=== PATIENT | female | born 1950 | race Caucasian/White ===

== ENCOUNTER 2017-02-17 22:13 | Inpatient (IN) | payer MEDICARE ==
[~2017-02-17] VITALS: Ht 167.6 cm; Wt 111.6 kg
[~2017-02-17 22:13] MED LIST: ALPR1CON PO; ALPR1TAB3 PO; BACL10TA PO; COUM2.5T OR; COUM7.5T; DOFE250 PO; DULO1CAP3 PO; ESZO3 PO; HYDR10TA16 PO; LYRI150C PO; MAXA10TA2 PO; METH500T3 PO; METO100T9 PO; METO50; MULTIVITAMIN; PRIL20TA2 PO; RELP40TA PO; RIZA10TA2; TRAM50TA PO; XARE20TA PO; calcium PO; iron PO
[2017-02-17] MEDS ORDERED: SODIUM CHLORIDE 0.9% FLUSH 10 ML FLUSH IV FLUSH PRN (23:45)
[2017-02-17] MEDS ORDERED: NALOXONE HCL 0.4 MG/ML AMP IV PUSH PRN (23:45)
[2017-02-18] VITALS (8 sets, daily range): BP systolic 84–136; BP diastolic 51–90; PULSE 82–107; RESP 16–18; TEMP 97.4–99.5; O2SAT 95–99
[2017-02-18] MEDS ORDERED: LEVOFLOXACIN 750 MG PREMIX INJ 150 ML IV SCH
[2017-02-18] MEDS: MORPHINE SULFATE 2 MG/ML INJ IV PUSH PRN (00:14)
--- NOTE | 2017-02-18 01:33 | RADRPT ---
EXAM DATE/TIME: 02/18/2017 00:25 [facility] COMPARISON: No previous studies available for comparison. INDICATIONS : Bilateral leg pain. MEDICAL HISTORY : Hypothyroidism. Hypertension. Gastroesophageal reflux disease. A-fib. Arthritis. SURGICAL HISTORY : Hysterectomy.Total knee replacement, left. Gastric bypass. ENCOUNTER: Initial ACUITY: 2 day PAIN SCORE: 7/10 LOCATION: Bilateral legs. TECHNIQUE: Venous ultrasound of the left and right leg was performed from the inguinal ligament to the proximal calf. Real-time, color Doppler and spectral tracing, compression and augmentation techniques were us ed. FINDINGS: RIGHT LEG: There is normal compressibility of the deep venous system from the inguinal region to the proximal ca lf. No echogenic clot is seen in the lumen of the common femoral, femoral, popliteal, and posterior tibial veins. There is a normal response of the venous system to proximal and distal augmentation an d respiration. LEFT LEG: There is normal compressibility of the deep venous system from the inguinal region to the proximal ca lf. No echogenic clot is seen in the lumen of the common femoral, femoral, popliteal, and posterior tibial veins. There is a normal response of the venous system to proximal and distal augmentation an d respiration. CONCLUSION: No DVT in either leg. Robert Ham MD on February 18, 2017 at 1:32 Board Certified Radiologist. This report was verified electronically.
[2017-02-18] MEDS: DOFETILIDE 250 MCG CAP PO SCH ×2 (07:00→21:27)
[2017-02-18] MEDS: SODIUM CHLORIDE 0.9% FLUSH 10 ML FLUSH IV FLUSH SCH ×2 (08:01→21:28)
[2017-02-18] MEDS ORDERED: Vancomycin Consult Pharmacy 1 EA OTHER SCH (08:45)
[2017-02-18] MEDS ORDERED: VANCOMYCIN INJ 1,550 MG in SODIUM CHLORID 0.9% 500 ML INJ 500 ML IV ONE (08:45)
--- NOTE | 2017-02-18 09:10 | HHI.HP ---
HPI [facility] Primary Care Physician Non-Staff Admission Diagnosis Diagnoses: Chief Complaint: Knee pain Travel History International Travel<30 Days: No Contact w/Intl Traveler <30 Da: No Traveled to Known Affected Are: No History of Present Illness The patient is a 66-year-old female with past medical history of atrial fibrillation and osteoarthritis who is presenting to the hospital with left knee pain. The patient states that about 6 days ago she went to the bathroom and sat on the toilet. The next thing she knows that she woke up on the floor in the shower. She says she did not hit her head but she did injure her left knee, which she says she has had a left knee replacement on in the past. She says that the night before this occurred she took NyQuil and she believes that may have contributed to her passing out in the bathroom. The patient has had some pain in the left knee but it has gotten worse over the next few days. She noticed an area of pus around her left knee. She noticed redness around the left knee as well as on the underside of her left leg. The patient's family states that the patient has been acting strange over the past couple of weeks. They say she has been talking strangely and acting loopy. The patient says that has been occurring over the past couple weeks. She also mentions she has blacked out a couple of times. She does endorse palpitations from time to time. She says she has not hit her head. The patient says she has not been eating. She recently had an esophageal dilation done and she says her appetite has improved since then. She mentions her blood sugar has been found to be low in the other emergency department. Review of Systems Except as stated in HPI: all other systems reviewed are Neg Past Family Social History Past Medical History Osteoarthritis Atrial fibrillation Depression/anxiety Dysphagia Left wrist fracture Migraines Past Surgical History Left knee replacement Gastric bypass Allergies: Coded Allergies: acetaminophen (Unverified Allergy, Severe, 12/10/16) enoxaparin (Unverified Allergy, Severe, 12/10/16) oxycodone (Unverified Allergy, Severe, 12/10/16) Active Ordered Medications Current Medications Medications (Trade) Dose Ordered Sig/Cristian Route Start Time Stop Time Status Last Admin (NS Flush) 2 ml UNSCH PRN IV FLUSH 02/17/17 23:45 (NS Flush) 2 ml BID IV FLUSH 02/18/17 09:00 02/18/17 08:01 (Narcan Inj) 0.4 mg UNSCH PRN IV PUSH 02/17/17 23:45 (Morphine Inj) 2 mg Q3H PRN IV PUSH 02/18/17 00:00 02/18/17 00:14 (Tikosyn) 250 mcg BID PO 02/18/17 09:00 (Cymbalta Dr) 60 mg DAILY PO 02/18/17 09:00 (Xarelto) 20 mg DAILY PO 02/18/17 09:00 (Toprol Xl) 100 mg DAILY PO 02/18/17 09:00 Pharmacy Profile Note 0 ml @ 0 mls/hr UNSCH OTHER 02/18/17 08:45 UNV Vancomycin HCl 1550 mg/Sodium Chloride 515.5 ml @ 250 mls/hr Q12H IV 02/18/17 08:45 UNV Family History The patient denies pertinent family history Social History The patient does not smoke or drink Physical Exam Vital Signs Vital Signs Date Time Temp Pulse Resp B/P (MAP) Pulse Ox O2 Delivery O2 Flow Rate FiO2 02/18/17 08:00 97.4 101 16 111/64 (80) 95 02/18/17 04:00 98.4 106 18 119/69 (86) 95 02/18/17 01:10 95 02/18/17 00:00 99.5 88 18 136/90 (105) 99 Physical Exam GENERAL: Resting comfortably. SKIN: Focused skin assessment warm/dry. Erythema on the anterior left knee encompassing the entire left distal lower extremity. There is ecchymosis on the posterior left lower extremity. 3 cm right 2 cm dehiscence of the healed surgical site on the left anterior knee. There appears to be blackened scab versus necrosis in this area. HEAD: Atraumatic. Normocephalic. EYES: Pupils equal and round. No scleral icterus. No injection or drainage. ENT: No nasal bleeding or discharge. Mucous membranes pink and moist. NECK: Trachea midline. No JVD. CARDIOVASCULAR: Irregularly irregular. No murmur appreciated. RESPIRATORY: No accessory muscle use. Clear to auscultation. Breath sounds equal bilaterally. GASTROINTESTINAL: Abdomen soft, non-tender, nondistended. Hepatic and splenic margins not palpable. MUSCULOSKELETAL: No obvious deformities. No clubbing. No cyanosis. 2+ left lower extremity edema. Distal pulses are palpable. Tenderness also to palpation of the left anterior knee. NEUROLOGICAL: Awake and alert. No obvious cranial nerve deficits. Motor grossly within normal limits. Normal speech. PSYCH: Mood and affect appropriate. Imaging Last Impressions Lower Extremity Ultrasound 02/17/17 0000 Signed Impressions: Service Date/Time: Saturday, February 18, 2017 00:25 - CONCLUSION: No DVT in either leg. MD Haley Woods VTE Risk Assessment Haley VTE Risk Assessment: Mod/High Risk (score >= 2) Caprini Risk Assessment Model Point Value = 1 Point Value = 2 Point Value = 3 Point Value = 5 Age 41-60 Minor surgery BMI > 25 kg/m2 Swollen legs Varicose veins or History of unexplained or recurrent spontaneous Oral contraceptives or hormone replacement Sepsis (< 1 month) Serious lung disease, including pneumonia (< 1 month) Abnormal pulmonary function Acute myocardial infarction Congestive heart failure (< 1 month) History of inflammatory bowel disease Medical patient at bed rest Age 61-74 Arthroscopic surgery Major open surgery (> 45 min) Laparoscopic surgery (> 45 min) Malignancy Confined to bed (> 72 hours) Immobilizing plaster cast Central venous access Age >= 75 History of VTE Family history of VTE Factor V Leiden Prothrombin [id number] Lupus anticoagulant Anticardiolipin antibodies Elevated serum homocysteine Heparin-induced thrombocytopenia Other congenital or acquired thrombophilia Stroke (< 1 month) Elective arthroplasty Hip, pelvis, or leg fracture Acute spinal cord injury (< 1 month) Prophylaxis Regimen Total Risk Factor Score Risk Level Prophylaxis Regimen 0-1 Low Early ambulation 2 Moderate Order ONE of the following: *Sequential Compression Device (SCD) *Heparin 5000 units SQ BID 3-4 Higher Order ONE of the following medications: *Heparin 5000 units SQ TID *Enoxaparin/Lovenox 40 mg SQ daily (WT < 150 kg, CrCl > 30 mL/min) *Enoxaparin/Lovenox 30 mg SQ daily (WT < 150 kg, CrCl > 10-29 mL/min) *Enoxaparin/Lovenox 30 mg SQ BID (WT < 150 kg, CrCl > 30 mL/min) AND/OR *Sequential Compression Device (SCD) 5 or more Highest Order ONE of the following medications: *Heparin 5000 units SQ TID (Preferred with Epidurals) *Enoxaparin/Lovenox 40 mg SQ daily (WT < 150 kg, CrCl > 30 mL/min) *Enoxaparin/Lovenox 30 mg SQ daily (WT < 150 kg, CrCl > 10-29 mL/min) *Enoxaparin/Lovenox 30 mg SQ BID (WT < 150 kg, CrCl > 30 mL/min) AND *Sequential Compression Device (SCD) Assessment and Plan Assessment and Plan Cellulitis Started following a fall involving her left knee, which has a total knee replacement in place. The pt endorses pus coming out from the old surgical scar. Knee x ray without deformity. US negative for DVT. - change antibiotics to IV vancomycin. - obtain wound and blood cultures. - consult infectious disease. - pain control as needed. - IVFs. Syncope Etiology may be s/t polypharmacy, a fib or hypoglycemia. Blood sugar noted to be in the 40s in the ED. The pt is not diabetic. She says she has not been eating well. Has been experiencing palpitations at times. - check CT of the head, carotid Duplex and orthostatics. - follow blood sugar level. - obtain an echocardiogram. - holding sedating meds at this time. A fib On Tikosyn, metoprolol and Xarelto. - resume home regimen. - telemetry. PPx: Xarelto Code Status Full Discussed Condition With Pt, pt's family, Bri Soliman Physician Certification 2 Midnight Certification Type: Admission for Inpatient Services Order for Inpatient Services The services are ordered in accordance with Medicare regulations or non- Medicare payer requirements, as applicable. In the case of services not specified as inpatient-only, they are appropriately provided as inpatient services in accordance with the 2-midnight benchmark. Estimated LOS (days): 2 days is the estimated time the patient will need to remain in the hospital, assuming treatment plan goals are met and no additional complications. Post-Hospital Plan: Not yet determined Werner Moody DO Feb 18, 2017 09:10
[2017-02-18] MEDS: DOCUSATE SODIUM 100 MG CAP PO SCH ×2 (09:30→21:26)
[2017-02-18] MEDS: METOPROLOL SUCCINATE 50 MG EXTENDED RELEASE TAB PO SCH (09:33)
[2017-02-18] MEDS: RIVAROXABAN 20 MG TAB PO SCH (09:33)
[2017-02-18] MEDS: DULoxetine HCl DR 60 MG CAP PO SCH (09:33)
[2017-02-18] MEDS: PANTOPRAZOLE SOD 20 MG DELAYED RELEASE TAB PO SCH ×2 (09:41→21:27)
[2017-02-18] MEDS: traMADol HCL 50 MG TAB PO PRN ×3 (09:52→18:08)
--- NOTE | 2017-02-18 10:33 | RADRPT ---
EXAM DATE/TIME: 02/18/2017 09:59 [facility] COMPARISON: No previous studies available for comparison. INDICATIONS : Syncope. MEDICAL HISTORY : Hypertension. Gastroesophageal reflux disease. Vertigo. Migraine. Atrial fibrillation. Dyspnea. Cer vical cancer. SURGICAL HISTORY : Tonsillectomy. Hysterectomy. Gastric bypass and revision. Esophageal dilation. Left knee replacemen t. Left wrist surgery. ENCOUNTER: Initial ACUITY: 1 day PAIN SCORE: 0/10 LOCATION: Bilateral neck PEAK SYSTOLIC VELOCITIES (cm/sec): ICA/CCA RATIO: Right: 1.4 Left: 1.1 ICA: Right: 114 Left: 122 CCA: Right: 80 Left: 108 ECA: Right: 96 Left: 88 VERTEBRAL: Right: 53 antegrade Left: 48 antegrade Elevated flow velocities and ICA/CCA ratios have been found to correlate with increased degrees of vessel stenosis, calculated as percentage of diameter relative to a normal segment of distal ICA/CCA FINDINGS: RIGHT CAROTID: Minimal noncalcified plaque in the right carotid bulb. The waveforms are within normal limits. LEFT CAROTID: No significant stenosis is visualized. The waveforms are within normal limits. VERTEBRAL ARTERIES: Antegrade flow is seen in both vertebral arteries. MISCELLANEOUS: None. CONCLUSION: 1. Minimal noncalcified plaque in right carotid bulb. 2. Otherwise negative. No sonographic or Doppler findings of a hemodynamically significant stenosis. Antegrade flow in both vertebral arteries. Rosas Whittington MD on February 18, 2017 at 10:30 Board Certified Radiologist. This report was verified electronically.
[2017-02-18 10:37] LABS: AUTOMATED NEUTROPHIL # 3.5 TH/MM3 (1.8-7.7); BASOPHIL # 0.1 TH/MM3 (0-0.2); EOSINOPHIL # 0.2 TH/MM3 (0-0.4); HEMO FLAGS DIFF FINAL; LYMPH % 21.2 % (9.0-44.0); LYMPHOCYTE # 1.1 TH/MM3 (1.0-4.8); MEAN CELL VOLUME 89.7 FL (80.0-100.0); MEAN CORPUSCULAR HGB CONC 31.2 % (32.0-36.0); MONO % 7.9 % (0.0-8.0); NEUT % 65.9 % (16.0-70.0); PLATELET COUNT 244 TH/MM3 (150-450); RED BLOOD COUNT 3.69 MIL/MM3 (4.00-5.30); RED CELL DISTRIBUTION WIDTH 14.3 % (11.6-17.2); WHITE BLOOD COUNT 5.3 TH/MM3 (4.0-11.0)
[2017-02-18 10:45] LABS: POTASSIUM 3.5 MEQ/L (3.5-5.1)
[2017-02-18 10:48] LABS: BICARBONATE 31.8 MEQ/L (21.0-32.0)
--- NOTE | 2017-02-18 16:03 | RADRPT ---
EXAM DATE/TIME: 02/18/2017 15:42 [facility] COMPARISON: No previous studies available for comparison. INDICATIONS : Syncopal episode. RADIATION DOSE: 59.46 CTDIvol (mGy) MEDICAL HISTORY : Cardiovascular disease. Cervical cancer. SURGICAL HISTORY : Gastric bypass. Cholecystectomy.Hysterectomy. ENCOUNTER: Initial ACUITY: 4 - 6 days PAIN SCALE: 0/10 LOCATION: cranial TECHNIQUE: Multiple contiguous axial images were obtained of the head. Using automated exposure control and adj ustment of the mA and/or kV according to patient size, radiation dose was kept as low as reasonably a chievable to obtain optimal diagnostic quality images. DICOM format image data is available electro nically for review and comparison. FINDINGS: CEREBRUM: The ventricles are normal for age. No evidence of midline shift, mass lesion, hemorrhage or acute in farction. No extra-axial fluid collections are seen. POSTERIOR FOSSA: The cerebellum and brainstem are intact. The 4th ventricle is midline. The cerebellopontine angle i s unremarkable. EXTRACRANIAL: There is complete opacification of the maxillary sinuses, multiple anterior and mid ethmoid air cells , the right frontal sinus, and the sphenoid sinus. Mucosal thickening The visualized portion of the orbits is intact. SKULL: The calvaria is intact. No evidence of skull fracture. CONCLUSION: 1. No acute findings in the brain. 2. Pansinus disease. Dean Kwok MD on February 18, 2017 at 16:01 Board Certified Radiologist. This report was verified electronically.
[2017-02-18] MEDS: CEFEPIME INJ 1,000 MG in SODIUM CHLORIDE 0.9% INJ 100 ML IV SCH (18:08)
--- NOTE | 2017-02-18 21:36 | MB ---
cc: MAE ROY MD DATE OF CONSULTATION 02/18/[address] Moody REASON FOR CONSULTATION Cellulitis overlying left knee replacement. HISTORY OF PRESENT ILLNESS This is a 66-year-old white female who has a history of total left knee replacement in 2008. The patient fell from the commode at home and reportedly she struck her knee against the floor of her bathroom. This happened about a week ago. She states that she had a tiny bruise at the anterior aspect of her left knee where she had the total right knee replacement. She used Neosporin and put a Band-Aid over it. The patient also had pain at the left tibia. She reports that her family was mentioning that her communication was off and that she at times was not making sense. The patient states that she was wearing long clothing to hide the injury of her leg from her family. She gets around with a cane at home. However, the son saw her leg and immediately wanted her evaluated in the emergency department and she was taken to [place] emergency department and subsequently transferred here to [facility]. She underwent ultrasound of the lower extremity which showed no evidence of deep venous thrombosis. She was felt to likely have syncope and workup is in progress. She has no fever and white blood cell count is normal. She has been on blood thinners for atrial fibrillation. She denies chills, sweats, fever, nausea or vomiting. The patient underwent esophageal dilatation recently and has been having trouble with swallowing. PAST MEDICAL HISTORY Atrial fibrillation, depression, anxiety, dysphagia, migraines, osteoarthritis, total left knee replacement in 2008, gastric bypass. ALLERGIES ACETAMINOPHEN, ENOXAPARIN, OXYCODONE. MEDICATIONS 1. Vancomycin. 2. Ultram. 3. Colace. 4. Protonix. 5. Tikosyn. 6. Cymbalta. 7. Xarelto. 8. Toprol XL. SOCIAL HISTORY No tobacco or alcohol or illicit drugs. The patient lives in [place] and she has a daughter and son who lives with her. FAMILY HISTORY Noncontributory. REVIEW OF SYSTEMS GENERAL: Denies fever or chills. HEAD, EARS, NOSE AND THROAT: Significant for migraine headaches. Denies visual blurring or diplopia. Denies nasal bleeding. Denies soreness of the throat. Positive for dysphasia. NECK: Denies neck pain or swelling. CARDIOVASCULAR: Denies palpitation or chest pain. RESPIRATORY: Denies cough or shortness of breath. GASTROINTESTINAL: Denies nausea or vomiting, abdominal pain or diarrhea. GENITOURINARY: Denies urgency, frequency or dysuria. HEMATOPOIETIC: Denies easy bruising or bleeding. INTEGUMENTARY: Denies skin rash or itching. ENDOCRINE: Denies polyuria, polydipsia. NEUROLOGIC: Denies problems with coordination. Denies depression. PHYSICAL EXAMINATION GENERAL: This is a slender female who is in no acute distress. She is awake and alert and oriented. VITAL SIGNS: Include temperature 97.9, blood pressure 104/64, respirations 18, heart rate 84. HEENT: Head is atraumatic. Extraocular movements grossly intact, pupils reactive to light. No icterus. Oropharynx moist mucosa. NECK: Supple. No adenopathy. LUNGS: Clear breath sounds. HEART: Irregular rate and rhythm. No murmurs, rubs or gallops. ABDOMEN: Bowel sounds present, soft, nontender. RECTAL: Not performed. EXTREMITIES: The left knee has an incision from prior left knee replacement surgery. Directly over the kneecap there is erythema and also there is a black necrotic scab at the central aspect over the mid area of the kneecap. There is no visible drainage. The posterior/lateral aspect of the left thigh and knee has ecchymosis. The left tibia, approximately mid tibia down to the ankle has confluent erythema with areas of purplish discoloration and the area is extremely warm. This is circumferential. No visible blisters. The remaining extremities have no clubbing, cyanosis or edema. SKIN: No diffuse rash. NEURO: Nonfocal. LABORATORY DATA WBC 5.3, platelets 244, 65% neutrophils, hemoglobin 10.3, creatinine 0.58, BUN 8, sodium 139. IMPRESSION Erythema involving the left knee at prior left knee replacement surgery and also at the left leg. The patient reportedly mentioned that she has some pus coming from the knee area where she had an ulcer. It is unclear to me whether the ulcer began after she fell or whether it was present before. The patient, in the presence of her daughter, mentions before her fall the skin was normal with the incision after surgery visible and the skin over it the same throughout with a well-healed incision. It is difficult to decide whether this is an actual cellulitis or whether it is ecchymoses or superficial bruising as a result of the patient being on blood thinners. The area below the knee, however, where the tibia has confluent erythema suggest that it may be cellulitis which may have followed the trauma to her leg. The area is extremely warm and erythematous. The patient has had prior surgery at the knee and therefore it may be difficult to determine whether there is infection in that area. I am concerned because of the knee instrumentation that she could have underlying infection involving the knee hardware. She easily could have an infected knee with infected hardware as well. RECOMMENDATIONS 1. Continue vancomycin. 2. Add cefepime for gram-negative coverage. 3. Obtain C-reactive protein. 4. Obtain sedimentation rate. 5. Consult orthopedic surgery for evaluation of the knee. 6. Monitor response to the antibiotic treatment. Thank you for this consultation. I will monitor the patient's progress along with you and make further recommendations on followup if necessary. The patient does not want to be in the hospital. However, I informed her that it is necessary to have adequate evaluation and treatment and that she needs to remain in the hospital for that to occur. Mae Roy MD FD/OWEN /5:25 PM /9:09 PM [email or web address]
--- NOTE | 2017-02-18 22:17 | RADRPT ---
EXAM DATE/TIME: 02/18/2017 19:26 [facility] COMPARISON: No previous studies available for comparison. INDICATIONS : Left knee pain post fall. MEDICAL HISTORY : None. SURGICAL HISTORY : Total knee replacement, left. ENCOUNTER: Subsequent ACUITY: 2 days PAIN SCORE: 9/10 LOCATION: Left knee. FINDINGS: There is soft tissue swelling which is mainly anterior. No evidence of underlying fracture. Total kne e arthroplasty is intact. CONCLUSION: Soft tissue swelling. No acute bony injury Mando Bedolla MD on February 18, 2017 at 22:15 Board Certified Radiologist. This report was verified electronically.
[2017-02-19] VITALS (7 sets, daily range): BP systolic 102–142; BP diastolic 58–96; PULSE 84–96; RESP 14–20; TEMP 97.1–98.1; O2SAT 97–100
[2017-02-19] MEDS: VANCOMYCIN INJ 2,400 MG in SODIUM CHLORID 0.9% 500 ML INJ 500 ML IV SCH ×2 (00:48→18:08)
[2017-02-19] MEDS: CEFEPIME INJ 1,000 MG in SODIUM CHLORIDE 0.9% INJ 100 ML IV SCH ×3 (04:08→17:22)
[2017-02-19] MEDS: MORPHINE SULFATE 2 MG/ML INJ IV PUSH PRN (04:23)
[2017-02-19 08:08] LABS: HEMATOCRIT 32.9 % (35.0-46.0); MEAN CELL VOLUME 87.5 FL (80.0-100.0); MEAN CORPUSCULAR HEMOGLOBIN 29.3 PG (27.0-34.0); MEAN CORPUSCULAR HGB CONC 33.5 % (32.0-36.0); PLATELET COUNT 238 TH/MM3 (150-450); RED BLOOD COUNT 3.76 MIL/MM3 (4.00-5.30); RED CELL DISTRIBUTION WIDTH 13.5 % (11.6-17.2); REVIEW FLAG FINAL; WHITE BLOOD COUNT 5.5 TH/MM3 (4.0-11.0)
[2017-02-19 08:19] LABS: POTASSIUM 3.7 MEQ/L (3.5-5.1)
[2017-02-19 08:23] LABS: BICARBONATE 29.7 MEQ/L (21.0-32.0); MAGNESIUM 1.8 MG/DL (1.5-2.5)
[2017-02-19] MEDS: DULoxetine HCl DR 60 MG CAP PO SCH (08:49)
[2017-02-19] MEDS: DOFETILIDE 250 MCG CAP PO SCH ×2 (08:49→21:23)
[2017-02-19] MEDS: DOCUSATE SODIUM 100 MG CAP PO SCH ×2 (08:50→21:23)
[2017-02-19] MEDS: SODIUM CHLORIDE 0.9% FLUSH 10 ML FLUSH IV FLUSH SCH ×2 (08:50→21:22)
[2017-02-19] MEDS: METOPROLOL SUCCINATE 50 MG EXTENDED RELEASE TAB PO SCH (08:50)
[2017-02-19] MEDS: RIVAROXABAN 20 MG TAB PO SCH (08:50)
[2017-02-19] MEDS: PANTOPRAZOLE SOD 20 MG DELAYED RELEASE TAB PO SCH ×2 (08:55→21:23)
--- NOTE | 2017-02-19 11:29 | HHI.PR ---
Subjective Remarks The patient has been ambulating the hallways without difficulty. She really wants to go home. Family was at the bedside. Their questions were answered. The patient says her pain level is good. She has not had a bowel movement in a few days. Discussed with nursing. Objective Vitals Vital Signs Date Time Temp Pulse Resp B/P (MAP) Pulse Ox O2 Delivery O2 Flow Rate FiO2 02/19/17 08:09 88 02/19/17 08:00 97.8 90 14 125/69 (87) 97 102/79 (87) 118/92 (101) 02/19/17 04:00 98.0 85 20 110/58 (75) 98 02/19/17 00:00 98.1 85 20 106/61 (76) 98 02/18/17 20:00 82 02/18/17 20:00 97.5 82 18 109/56 (73) 98 94/52 (66) 118/69 (85) 02/18/17 16:00 97.9 84 18 104/64 (77) 96 02/18/17 12:00 98.1 99 16 106/59 (75) 96 104/55 (71) 84/51 (62) I/O 02/18/17 02/18/17 02/18/17 02/19/17 02/19/17 02/19/17 07:00 15:00 23:00 07:00 15:00 23:00 Intake Total 315 ml 1350 ml 855 ml Balance 315 ml 1350 ml 855 ml Intake Oral 180 ml 840 ml 240 ml IV Total 135 ml 510 ml 615 ml # Voids 1 3 6 # Bowel Movements 1 Result Diagram: 02/19/17 0755 02/19/17 0755 Imaging Last Impressions Knee X-Ray 02/18/17 0000 Signed Impressions: Service Date/Time: Saturday, February 18, 2017 19:26 - CONCLUSION: Soft tissue swelling. No acute bony injury Mando Bedolla MD Head CT 02/18/17 0000 Signed Impressions: Service Date/Time: Saturday, February 18, 2017 15:42 - CONCLUSION: 1. No acute findings in the brain. 2. Pansinus disease. Dean Kwok MD Carotid Artery Ultrasound 02/18/17 0000 Signed Impressions: Service Date/Time: Saturday, February 18, 2017 09:59 - CONCLUSION: 1. Minimal noncalcified plaque in right carotid bulb. 2. Otherwise negative. No sonographic or Doppler findings of a hemodynamically significant stenosis. Antegrade flow in both vertebral arteries. Rosas Whittington MD Lower Extremity Ultrasound 02/17/17 0000 Signed Impressions: Service Date/Time: Saturday, February 18, 2017 00:25 - CONCLUSION: No DVT in either leg. Robert Ham MD Objective Remarks GENERAL: Resting comfortably. SKIN: Focused skin assessment warm/dry. Erythema and warmth on the anterior left knee encompassing the entire left distal lower extremity. There is ecchymosis on the posterior left lower extremity. 3 cm right 2 cm dehiscence of the healed surgical site on the left anterior knee. There appears to be blackened scab versus necrosis in this area. HEAD: Atraumatic. Normocephalic. EYES: Pupils equal and round. No scleral icterus. No injection or drainage. ENT: No nasal bleeding or discharge. Mucous membranes pink and moist. NECK: Trachea midline. No JVD. CARDIOVASCULAR: Irregularly irregular. No murmur appreciated. RESPIRATORY: No accessory muscle use. Clear to auscultation. Breath sounds equal bilaterally. GASTROINTESTINAL: Abdomen soft, non-tender, nondistended. Hepatic and splenic margins not palpable. MUSCULOSKELETAL: No obvious deformities. No clubbing. No cyanosis. 2+ left lower extremity edema. Distal pulses are palpable. Tenderness also to palpation of the left anterior knee. NEUROLOGICAL: Awake and alert. No obvious cranial nerve deficits. Motor grossly within normal limits. Normal speech. PSYCH: Mood and affect appropriate. Medications and IVs Current Medications Medications (Trade) Dose Ordered Sig/Cristian Route Start Time Stop Time Status Last Admin (NS Flush) 2 ml UNSCH PRN IV FLUSH 02/17/17 23:45 (NS Flush) 2 ml BID IV FLUSH 02/18/17 09:00 02/19/17 08:50 (Narcan Inj) 0.4 mg UNSCH PRN IV PUSH 02/17/17 23:45 (Morphine Inj) 2 mg Q3H PRN IV PUSH 02/18/17 00:00 02/19/17 04:23 (Tikosyn) 250 mcg BID PO 02/18/17 09:00 02/19/17 08:49 (Cymbalta Dr) 60 mg DAILY PO 02/18/17 09:00 02/19/17 08:49 (Xarelto) 20 mg DAILY PO 02/18/17 09:00 02/19/17 08:50 (Toprol Xl) 100 mg DAILY PO 02/18/17 09:00 02/19/17 08:50 Pharmacy Profile Note 0 ml @ 0 mls/hr UNSCH OTHER 02/18/17 08:45 (Protonix) 20 mg BID PO 02/18/17 09:15 02/19/17 08:55 (Ultram) 50 mg Q4H PRN PO 02/18/17 09:30 02/18/17 18:08 (Colace) 100 mg BID PO 02/18/17 09:30 02/19/17 08:50 Vancomycin HCl 2400 mg/Sodium Chloride 524 ml @ 250 mls/hr Q18H IV 02/19/17 00:00 02/19/17 00:48 Miscellaneous Information SPECIFIC LAB TO BE DRAWN:VANCO TROUGH DATE TO... ONCE ONCE .XX 02/21/17 05:45 02/21/17 05:46 Cefepime HCl 1000 mg/Sodium Chloride 100 ml @ 200 mls/hr Q8H IV 02/18/17 18:00 02/19/17 08:55 A/P Assessment and Plan Cellulitis Started after a fall involving her left knee, which has a total knee replacement in place. The pt endorses pus coming out from the old surgical scar. Knee x ray without deformity. US negative for DVT. ID consult appreciated. - continue IV vancomycin and cefepime per ID. - obtain wound and blood cultures. - consult orthopedic surgery. - pain control as needed. - IVFs. Syncope Etiology may be s/t polypharmacy, a fib or hypoglycemia. Blood sugar noted to be in the 40s in the ED. The pt is not diabetic. She says she has not been eating well. Has been experiencing palpitations at times. CT of the head unremarkable. Carotid US without significant stenosis. Not orthostatic. Glucose levels have been normal. Improved. - follow daily blood sugars. - obtain an echocardiogram. - holding sedating meds at this time. A fib On Tikosyn, metoprolol and Xarelto. Rate is controlled. - resume home regimen. - telemetry. PPx: Xarelto Discharge Planning Awaiting ortho Werner Cho DO Feb 19, 2017 11:29
--- NOTE | 2017-02-19 11:58 | PD.WCN.NOT ---
Wound Consult Description: Received consult for wound management of L lower extremity from Doctor Minerva Communicated with: EVENS Duran [facility] COORDINATOR and Doctor Heidy Recommendation: Please paint wound to L knee with povidone-iodine and cover with bordered gauze until seen by Orthopedic Doctor Additional Information: Patient seen on 3rd floor [facility] for evaluation of L lower extremity wound management. Patient is laying in bed with HOD elevated. Removed bordered gauze dressing in place to L knee to reveal. old incision scar with open wound measuring ~3cm x 1cm x eschar. Wound is 100% covered with black eschar. Periwound presents with two small areas of partial thickness skin loss. Also noted edema that is fluctuant, heat and erythema that is circumferential.Wound has minimal sero-sanguinous drainage that is without odor. Wound culture is negative. Pedal pulse in L foot is weak. Painted wound with povidone iodine and covered wound with bordered gauze dressing. Orthopedic Doctor Consulted.Patient wants to leave, states," I think the wound is doing better." Spoke with patient at length regarding the importance of orthopedic Doctor evaluation of wound and L knee.Patient still wants to leave, states," I can see the Orthopedic Doctor when I leave."Spoke with Doctor Heidy regarding wound status , and patient's wishes and expectations. Belkys Cuello [facility] Feb 19, 2017 11:58
[2017-02-19] MEDS: traMADol HCL 50 MG TAB PO PRN (14:55)
--- NOTE | 2017-02-19 16:13 | HHI.IDPN ---
Note Infectious Disease Note Patient notes that she has little pain in the left knee. afebrile. Knee appears swollen. Denies chill but says she always get's hot/cold flushes. PAST MEDICAL HISTORY Atrial fibrillation. Depression. Anxiety. Dysphagia. Migraines. Osteoarthritis. total left knee replacement in 2008. Gastric bypass. ALLERGIES ACETAMINOPHEN, ENOXAPARIN, OXYCODONE. MEDICATIONS 1. Vancomycin. 2. Cefepime. OBJECTIVE: Vital Signs Date Time Temp Pulse Resp B/P (MAP) Pulse Ox O2 Delivery O2 Flow Rate FiO2 02/19/17 12:00 97.8 96 16 142/96 (111) 97 02/19/17 08:09 88 02/19/17 08:00 97.8 90 14 125/69 (87) 97 102/79 (87) 118/92 (101) 02/19/17 04:00 98.0 85 20 110/58 (75) 98 02/19/17 00:00 98.1 85 20 106/61 (76) 98 02/18/17 20:00 82 02/18/17 20:00 97.5 82 18 109/56 (73) 98 94/52 (66) 118/69 (85) 02/18/17 16:00 97.9 84 18 104/64 (77) 96 Laboratory Tests Test 02/18/17 18:50 02/19/17 07:55 Erythrocyte Sedimentation Rate 54 mm/hr 49 mm/hr C-Reactive Protein 3.40 MG/DL 2.58 MG/DL White Blood Count 5.5 TH/MM3 Red Blood Count 3.76 MIL/MM3 Hemoglobin 11.0 GM/DL Hematocrit 32.9 % Mean Corpuscular Volume 87.5 FL Mean Corpuscular Hemoglobin 29.3 PG Mean Corpuscular Hemoglobin Concent 33.5 % Red Cell Distribution Width 13.5 % Platelet Count 238 TH/MM3 Mean Platelet Volume 8.2 FL Blood Urea Nitrogen 8 MG/DL Creatinine 0.61 MG/DL Random Glucose 105 MG/DL Calcium Level 8.4 MG/DL Magnesium Level 1.8 MG/DL Sodium Level 138 MEQ/L Potassium Level 3.7 MEQ/L Chloride Level 104 MEQ/L Carbon Dioxide Level 29.7 MEQ/L Anion Gap 4 MEQ/L Estimat Glomerular Filtration Rate 98 ML/MIN PHYSICAL EXAMINATION GENERAL: No acute distress. Awake and alert and oriented. HEENT: Head is atraumatic. Extraocular movements grossly intact, pupils reactive to light. No icterus. Oropharynx moist mucosa. NECK: Supple. No adenopathy. LUNGS: Clear breath sounds. HEART: Irregular rate and rhythm. No murmurs, rubs or gallops. ABDOMEN: Bowel sounds present, soft, nontender. EXTREMITIES: The left knee has an incision from prior left knee replacement surgery. Directly over the kneecap there is erythema and also there is a black necrotic scab at the central aspect over the mid area of the kneecap. No drainage. The posterior/lateral aspect of the thigh and knee has ecchymosis. The left tibia, approximately mid tibia down to the ankle has confluent erythema with areas of purplish discoloration and the area is extremely warm. Minimal tenderness. This is circumferential. No visible blisters. The left foot has ecchymoses. The remaining extremities have no clubbing, cyanosis or edema. SKIN: No diffuse rash. NEURO: Nonfocal. IMPRESSION Erythema involving the left knee at prior left knee replacement surgery and also at the left leg. The patient reportedly mentioned that she has some pus coming from the knee area where she had an ulcer. It is unclear to me whether the ulcer began after she fell or whether it was present before. The patient, in the presence of her daughter, mentions before her fall the skin was normal with the incision after surgery visible and the skin over it the same throughout with a well-healed incision. It is difficult to decide whether this is an actual cellulitis or whether it is ecchymoses or superficial bruising as a result of the patient being on blood thinners. The area below the knee, however, where the tibia has confluent erythema suggest that it may be cellulitis which may have followed the trauma to her leg. The area is extremely warm and erythematous. The patient has had prior surgery at the knee and therefore it may be difficult to determine whether there is infection in that area. I am concerned because of the knee instrumentation that she could have underlying infection involving the knee hardware. She easily could have an infected knee with infected hardware as well. IMPRESSION. L knee trauma/ ? infection. Cellulitis L. tibia. RECOMMENDATIONS 1. Continue vancomycin. 2. Continue cefepime for gram-negative coverage. 3. Orthopedic evaluation of the knee. 4. Monitor response to the antibiotic treatment. Decision on antibiotics depending on the response. Dontfraid,Shiv F MD Feb 19, 2017 16:13
[2017-02-20] VITALS: BP 101/61; PULSE 86; RESP 20; TEMP 98; O2SAT 97
[2017-02-20] MEDS: ALPRAZolam 0.25 MG TAB PO PRN ×2 (00:12→11:39)
[2017-02-20] MEDS: traMADol HCL 50 MG TAB PO PRN ×2 (00:12→11:09)
[2017-02-20] MEDS: CEFEPIME INJ 1,000 MG in SODIUM CHLORIDE 0.9% INJ 100 ML IV SCH ×3 (01:52→18:00)
[2017-02-20 04:00] VITALS: BP 107/71; PULSE 98; RESP 20; TEMP 97.3; O2SAT 98
--- NOTE | 2017-02-20 06:03 | PD.CONS ---
cc: Tremayne Ferrell Jr., MD HPI Service Orthopedic Surgeons Consult Requested By Primary Care Physician Non-Staff Admission Diagnosis Diagnoses: Chief Complaint: Left knee pain History of Present Illness 66-year-old female with past medical history of atrial fibrillation and osteoarthritis who is presenting to the hospital with left knee pain. she sustained a fall on 6 days ago hitting her left knee. She is status post left total knee arthroplasty by a physician in [place]. She says that the night before this occurred she took NyQuil and she believes that may have contributed to her passing out in the bathroom. Her left knee pain has worsened over the past few days prompting her to come to the hospital. She complains of a small wound anterior aspect the left knee as well as swelling about the knee and leg associated with cellulitis and skin changes. Denies any fevers or chills. She is able to bear weight. Left knee pain 4/10, exacerbated by hyperflexion, Relieved at rest, not associated with paresthesias or numbness to the lower extremity. She does endorse palpitations from time to time. She says she has not hit her head. The patient says she has not been eating. She recently had an esophageal dilation done and she says her appetite has improved since then. She mentions her blood sugar has been found to be low in the other emergency department. ROS - General Review of Systems Except as stated in HPI: all other systems reviewed are Neg PFSH Past Family Social History Past Medical History Osteoarthritis Atrial fibrillation Depression/anxiety Dysphagia Left wrist fracture Migraines Past Surgical History Left knee replacement Gastric bypass Allergies: Coded Allergies: acetaminophen (Unverified Allergy, Severe, 12/10/16) enoxaparin (Unverified Allergy, Severe, 12/10/16) oxycodone (Unverified Allergy, Severe, 12/10/16) Past Family Social History Past Medical History Osteoarthritis Atrial fibrillation Depression/anxiety Dysphagia Left wrist fracture Migraines Past Surgical History Left knee replacement Gastric bypass Allergies: Coded Allergies: acetaminophen (Unverified Allergy, Severe, 12/10/16) enoxaparin (Unverified Allergy, Severe, 12/10/16) oxycodone (Unverified Allergy, Severe, 12/10/16) Active Ordered Medications Current Medications Medications (Trade) Dose Ordered Sig/Cristian Route Start Time Stop Time Status Last Admin (NS Flush) 2 ml UNSCH PRN IV FLUSH 02/17/17 23:45 (NS Flush) 2 ml BID IV FLUSH 02/18/17 09:00 02/19/17 21:22 (Narcan Inj) 0.4 mg UNSCH PRN IV PUSH 02/17/17 23:45 (Morphine Inj) 2 mg Q3H PRN IV PUSH 02/18/17 00:00 02/19/17 04:23 (Tikosyn) 250 mcg BID PO 02/18/17 09:00 02/19/17 21:23 (Cymbalta Dr) 60 mg DAILY PO 02/18/17 09:00 02/19/17 08:49 (Xarelto) 20 mg DAILY PO 02/18/17 09:00 02/19/17 08:50 (Toprol Xl) 100 mg DAILY PO 02/18/17 09:00 02/19/17 08:50 Pharmacy Profile Note 0 ml @ 0 mls/hr UNSCH OTHER 02/18/17 08:45 (Protonix) 20 mg BID PO 02/18/17 09:15 02/19/17 21:23 (Ultram) 50 mg Q4H PRN PO 02/18/17 09:30 02/20/17 00:12 (Colace) 100 mg BID PO 02/18/17 09:30 02/19/17 21:23 Vancomycin HCl 2400 mg/Sodium Chloride 524 ml @ 250 mls/hr Q18H IV 02/19/17 00:00 02/19/17 18:08 Miscellaneous Information SPECIFIC LAB TO BE DRAWN:VANCO TROUGH DATE TO... ONCE ONCE .XX 02/21/17 05:45 02/21/17 05:46 Cefepime HCl 1000 mg/Sodium Chloride 100 ml @ 200 mls/hr Q8H IV 02/18/17 18:00 02/20/17 01:52 (Xanax) 0.125 mg Q6H PRN PO 02/19/17 15:15 02/20/17 00:12 Reported Meds & Active Scripts Active Reported [calcium] 4,000 Mg PO DAILY [multlivitamin] [iron] 30 Mg PO DAILY Prilosec (Omeprazole Magnesium) 20 Mg Tab Mg PO BID Relpax (Eletriptan) 40 Mg Tab 40 Mg PO ONCE PRN Rizatriptan (Rizatriptan Benzoate) 10 Mg Tab 10 Mg PRN Alprazolam 1 Mg Tab 1 Mg PO PRN PRN Duloxetine DR (Duloxetine HCl) 60 Mg Capdr 60 Mg PO DAILY Baclofen 10 Mg Tab 10 Mg PO DAILY Tramadol (Tramadol HCl) 50 Mg Tab 50 Mg PO Q6H PRN Lyrica (Pregabalin) 150 Mg Cap 150 Mg PO DAILY Xarelto (Rivaroxaban) 20 Mg Tab 20 Mg PO DAILY Tikosyn (Dofetilide) 250 Mcg Cap 250 Mcg PO BID For Creatinine Clearance 40-60 mL/min Metoprolol Succinate ER 24 HR (Metoprolol Succinate) 100 Mg Tab 100 Mg PO DAILY Family History The patient denies pertinent family history Social History The patient does not smoke or drink Physical Exam Vital Signs Vital Signs Date Time Temp Pulse Resp B/P (MAP) Pulse Ox O2 Delivery O2 Flow Rate FiO2 02/20/17 04:00 97.3 98 20 107/71 (83) 98 02/20/17 00:00 98.0 86 20 101/61 (74) 97 02/19/17 20:00 97.8 93 20 117/83 (94) 98 129/94 (106) 116/71 (86) 02/19/17 16:00 97.1 84 16 121/85 (97) 100 02/19/17 12:00 97.8 96 16 142/96 (111) 97 02/19/17 08:09 88 02/19/17 08:00 97.8 90 14 125/69 (87) 97 102/79 (87) 118/92 (101) Physical Exam Alert awake and oriented x 3. No acute distress. Head: NC/ATNeck: No pain with any range of motion and neck. Pulmonary: Normal respiratory effort Bilateral upper extremity: No deformity. Grossly neurovascularly intact. 2+ radial artery pulses. Good cap refill. RIGHT lower extremity: Neurovascularly intact, +EHL/FHL, + PT/DP pulses. Supple compartments. Negative Homans sign. LEFT lower extremity: Anterior knee surgical scar is intact and healed. Small wound anterior aspect of the knee. No exposed bone or hardware. Mild surrounding erythema and cellulitis. No fluctuance. Multiple areas of ecchymosis and hematoma throughout the leg. ROM 5-120, No signs of infection. grossly Neurovascularly intact, +EHL/FHL, dressing clean, dry and intact. + PT/ DP pulses. Supple compartments. Negative Homans sign. Laboratory Laboratory Tests Test 02/19/17 07:55 White Blood Count 5.5 Red Blood Count 3.76 Hemoglobin 11.0 Hematocrit 32.9 Mean Corpuscular Volume 87.5 Mean Corpuscular Hemoglobin 29.3 Mean Corpuscular Hemoglobin Concent 33.5 Red Cell Distribution Width 13.5 Platelet Count 238 Mean Platelet Volume 8.2 Erythrocyte Sedimentation Rate 49 Blood Urea Nitrogen 8 Creatinine 0.61 Random Glucose 105 Calcium Level 8.4 Magnesium Level 1.8 Sodium Level 138 Potassium Level 3.7 Chloride Level 104 Carbon Dioxide Level 29.7 Anion Gap 4 Estimat Glomerular Filtration Rate 98 C-Reactive Protein 2.58 Date/Time Source Procedure Growth Status 02/18/17 09:45 Wound Knee Gram Stain - Final Resulted 02/18/17 09:45 Wound Knee Wound Culture - Preliminary NO GROWTH IN 24 HOURS. Resulted Result Diagram: 02/19/17 0755 02/19/17 0755 Imaging Two-view left knee reveal no fracture or dislocation. Total knee arthroplasty implant intact and stable. Assessment & Plan Assessment and Plan 66yoF s/p fall c/o left knee pain. She is s/p knee TKA by MD in [facility]. She has a past medical history of atrial fibrillation and osteoarthritis who is presenting to the hospital after a fall 6 days ago during which she injured her left knee, causing a small laceration to the anterior aspect. On exam she is grossly neurovascularly intact, she has small joint effusion with leg swelling from the knee distally with surrounding erythema and mild cellulitis around a small anterior knee wound. In addition , she has multiple areas of hematoma and ecchymosis in the thigh and leg secondary to being on blood thinning medication. No signs of infection. No drainage. No exposed bone. Imaging negative for fractures. -small anterior knee wound, leg hematoma and cellulutis. xrays negative for fracture. No intervention planned. -continue iv abx, wound care with dressing changes qday -PT, WBAT f/u with her Ortho MD in [facility] upon DC DATE OF CONSULT 02/19/2017 Tremayne Ferrell Jr., MD Feb 20, 2017 06:03
[2017-02-20 08:00] VITALS: BP_SYST 107; BP_SYST 119; BP_SYST 125; BP_DIAS 68; BP_DIAS 93; BP_DIAS 94; PULSE 95; RESP 14; TEMP 96.9; O2SAT 96
[2017-02-20] MEDS: RIVAROXABAN 20 MG TAB PO SCH (08:53)
[2017-02-20] MEDS: METOPROLOL SUCCINATE 50 MG EXTENDED RELEASE TAB PO SCH (08:54)
[2017-02-20] MEDS: DOCUSATE SODIUM 100 MG CAP PO SCH (08:54)
[2017-02-20] MEDS: PANTOPRAZOLE SOD 20 MG DELAYED RELEASE TAB PO SCH (08:55)
[2017-02-20] MEDS: DOFETILIDE 250 MCG CAP PO SCH (08:55)
[2017-02-20] MEDS: DULoxetine HCl DR 60 MG CAP PO SCH (08:55)
[2017-02-20] MEDS: SODIUM CHLORIDE 0.9% FLUSH 10 ML FLUSH IV FLUSH SCH (09:02)
[2017-02-20 12:00] VITALS: BP 136/71; PULSE 102; RESP 12; TEMP 97.2; O2SAT 94
[2017-02-20] MEDS: VANCOMYCIN INJ 2,400 MG in SODIUM CHLORID 0.9% 500 ML INJ 500 ML IV SCH ×2 (12:00→13:13)
--- NOTE | 2017-02-20 13:18 | HHI.FF ---
Infusion Therapy Location of Infusion Therapy: Home Health Care IV Infusion Order Patient Information Patient Weight 111.6 kg Diagnosis: (1) Cellulitis Coded Allergies: acetaminophen (Unverified Allergy, Severe, 12/10/16) enoxaparin (Unverified Allergy, Severe, 12/10/16) oxycodone (Unverified Allergy, Severe, 12/10/16) Administer Medication Ceftriaxone 2 grams IV q 24 hours Stop Treatment: Mar 02, 2017 Additional Information Venous access: PICC Line Additional Instructions [x] Peripheral flush and dressing changes per protocol [x] Implanted port and central pipeline operator: * Implanted port: 10 ml Normal Saline followed by 5 ml Heparin 100 units/ml Heparin flush after each use and monthly to maintain. [] May leave port accessed during therapy. [] May leave peripheral site accessed for duration of therapy. [x] If patient has SOB or respiratory distress, check oxygen saturation. If less than 90% or clinical signs of respiratory distress, administer oxygen at 2 L/min. via nasal cannula and notify physician. [x] Anaphylaxis/Reaction orders: * Stop infusion. * Keep IV line open with saline flush. * Notify physician. * Monitor vital signs every 15 minutes until symptoms resolve. * Check Oxygen saturation; Oxygen at 2 L/min. via nasal cannula if less than 90% or clinical signs of respiratory distress. * Administer diphenhydramine (Benadryl) 25 mg IV STAT, (unless patient has received as pre-med). May repeat once, if necessary. * Solu-Cortef 250 mg IVP over 30-60 seconds, use 100 mg vials for each dissolution. * Epinephrine (1mg/1 ml) 0.3 mg subcutaneously or IVP now with any signs of respiratory distress. * Check with physician for new additional pre-med orders if patient is re- challenged or re-treated. [x] May remove PICC line when treatment complete, after confirming with Physician. [x] If the patient is admitted to the hospital, the ED, or transferred via [facility] , complete transfer form including medication reconciliation order sheet. Laboratory Tests Weekly Labs: BMP Additional Information Follow up with her Primary doctor or ID doctor in [place] area. Shiv Roy MD Feb 20, 2017 13:18
--- NOTE | 2017-02-20 13:18 | HHI.DCPOC ---
Discharge Care Plan Diagnosis: (1) Cellulitis (2) Syncope Goals to Promote Your Health * To prevent worsening of your condition and complications * To maintain your health at the optimal level Directions to Meet Your Goals Take your medications as prescribed Follow your dietary instruction Follow activity as directed Keep your appointments as scheduled Take your immunizations and boosters as scheduled If your symptoms worsen call your PCP, if no PCP go to Urgent Care Center or Emergency Room Smoking is Dangerous to Your Health. Avoid second hand smoke Call the 24-hour hour crisis hotline for domestic abuse at Werner Moody DO Feb 20, 2017 13:18
--- NOTE | 2017-02-20 13:19 | HHI.FF ---
Face to Face Verification Diagnosis: (1) Cellulitis (2) Syncope Physical Therapy Order: Evaluate and Treat, Improve ambulation, Strength and gait training Home Health Nursing Order: Medical education Signs/symptoms of disease process Medication education-adverse effect Wound care and dressing changes Nursing assessment with vital signs IV medication administration I have seen patient Ute Patterson on 02/20/17. My clinical findings support the need for the requested home health care services because: Ltd mobility - disease progression Infection w/ risk of complications I certify that my clinical findings support that this patient is homebound because: Unsteady gait/balance Unsafe to leave home unassisted Werner Moody DO Feb 20, 2017 13:19
[2017-02-20] MEDS ORDERED: CEFT2INJ2 IV (13:23)
--- NOTE | 2017-02-20 13:29 | HHI.DS ---
Discharge Summary Admission Date Feb 18, 2017 at 09:03 Discharge Date: Feb 20, 2017 Admitting Diagnosis (1) Cellulitis ICD Code: L03.90 - Cellulitis, unspecified Diagnosis: Principal (2) Syncope ICD Code: R55 - Syncope and collapse Procedures None Brief History - From Admission The patient is a 66-year-old female with past medical history of atrial fibrillation and osteoarthritis who is presenting to the hospital with left knee pain. The patient states that about 6 days ago she went to the bathroom and sat on the toilet. The next thing she knows that she woke up on the floor in the shower. She says she did not hit her head but she did injure her left knee, which she says she has had a left knee replacement on in the past. She says that the night before this occurred she took NyQuil and she believes that may have contributed to her passing out in the bathroom. The patient has had some pain in the left knee but it has gotten worse over the next few days. She noticed an area of pus around her left knee. She noticed redness around the left knee as well as on the underside of her left leg. The patient's family states that the patient has been acting strange over the past couple of weeks. They say she has been talking strangely and acting loopy. The patient says that has been occurring over the past couple weeks. She also mentions she has blacked out a couple of times. She does endorse palpitations from time to time. She says she has not hit her head. The patient says she has not been eating. She recently had an esophageal dilation done and she says her appetite has improved since then. She mentions her blood sugar has been found to be low in the other emergency department. CBC/BMP: 02/19/17 0755 02/19/17 0755 Significant Findings Laboratory Tests Test 02/18/17 10:25 02/18/17 18:50 02/19/17 07:55 Red Blood Count 3.69 MIL/MM3 (4.00-5.30) 3.76 MIL/MM3 (4.00-5.30) Hemoglobin 10.3 GM/DL (11.6-15.3) 11.0 GM/DL (11.6-15.3) Hematocrit 33.0 % (35.0-46.0) 32.9 % (35.0-46.0) Mean Corpuscular Hemoglobin Concent 31.2 % (32.0-36.0) Random Glucose 118 MG/DL (74-106) Calcium Level 8.4 MG/DL (8.5-10.1) 8.4 MG/DL (8.5-10.1) Anion Gap 4 MEQ/L (5-15) 4 MEQ/L (5-15) Erythrocyte Sedimentation Rate 54 mm/hr (0-30) 49 mm/hr (0-30) C-Reactive Protein 3.40 MG/DL (0.00-0.30) 2.58 MG/DL (0.00-0.30) Imaging Last Impressions Knee X-Ray 02/18/17 0000 Signed Impressions: Service Date/Time: Saturday, February 18, 2017 19:26 - CONCLUSION: Soft tissue swelling. No acute bony injury Mando Bedolla MD Head CT 02/18/17 0000 Signed Impressions: Service Date/Time: Saturday, February 18, 2017 15:42 - CONCLUSION: 1. No acute findings in the brain. 2. Pansinus disease. Dean Kwok MD Carotid Artery Ultrasound 02/18/17 0000 Signed Impressions: Service Date/Time: Saturday, February 18, 2017 09:59 - CONCLUSION: 1. Minimal noncalcified plaque in right carotid bulb. 2. Otherwise negative. No sonographic or Doppler findings of a hemodynamically significant stenosis. Antegrade flow in both vertebral arteries. Rosas Whittington MD Lower Extremity Ultrasound 02/17/17 0000 Signed Impressions: Service Date/Time: Saturday, February 18, 2017 00:25 - CONCLUSION: No DVT in either leg. Robert Ham MD PE at Discharge GENERAL: Resting comfortably. SKIN: Focused skin assessment warm/dry. Erythema and warmth on the anterior left knee encompassing the entire left distal lower extremity. There is ecchymosis on the posterior left lower extremity. 3 cm right 2 cm dehiscence of the healed surgical site on the left anterior knee. There appears to be blackened scab versus necrosis in this area. HEAD: Atraumatic. Normocephalic. EYES: Pupils equal and round. No scleral icterus. No injection or drainage. ENT: No nasal bleeding or discharge. Mucous membranes pink and moist. NECK: Trachea midline. No JVD. CARDIOVASCULAR: Irregularly irregular. No murmur appreciated. RESPIRATORY: No accessory muscle use. Clear to auscultation. Breath sounds equal bilaterally. GASTROINTESTINAL: Abdomen soft, non-tender, nondistended. Hepatic and splenic margins not palpable. MUSCULOSKELETAL: No obvious deformities. No clubbing. No cyanosis. 2+ left lower extremity edema. Distal pulses are palpable. Tenderness also to palpation of the left anterior knee. NEUROLOGICAL: Awake and alert. No obvious cranial nerve deficits. Motor grossly within normal limits. Normal speech. PSYCH: Mood and affect appropriate. Pt update on day of discharge The patient wanted to go home. She said her knee felt better. She has been ambulating. She was agreeable with having home antibiotics. Discussed with infectious disease and case management. Hospital Course Cellulitis Started after a fall involving her left knee, which has a total knee replacement in place. The pt endorsed pus coming out from the old surgical scar. Knee x ray without deformity. US negative for DVT. ID was consulted and the pt was started on IV vancomycin and cefepime. Wound and blood cultures with no growth so far. We consulted orthopedic surgery who recommended treatment for cellulitis. The pt will follow up with orthopedic surgery as an outpt. She received pain control as needed as well as IVFs. She will be d/c with a 10 day course of IV ceftriaxone per ID. HHC and PICC line will be arranged. Case management assisted with discharge. She will follow up with her PCP. Syncope/ Confusion Blood sugar noted to be in the 40s in the ED. Has since been normal. CT of the head unremarkable. Carotid US without significant stenosis. Not orthostatic. We held several sedating meds. No further episodes of confusion or near syncope while in the hospital. A fib On Tikosyn, metoprolol and Xarelto. Rate was controlled. She was monitored on telemetry. She was continued on her home regimen. Pt Condition on Discharge: Stable Discharge Disposition: Disch w/ Home Health Serv Discharge Time: > 30 minutes Discharge Instructions DIET: Follow Instructions for: Heart Healthy Diet Activities you can perform: Weight Bearing as Gabrielle Follow up Referrals: Orthopedics - 1 Week with Denzel Anaya MD PCP Follow-up - 1 Week New Medications: Ceftriaxone Inj (Ceftriaxone Inj) 2 Gm/50 Ml Bagp 2 GM IV Q24H for Infection for 10 Days, BAG 0 Refills Continued Medications: Alprazolam (Alprazolam) 1 Mg Tab 1 MG PO PRN PRN for ANXIETY, TAB 0 Refills Dofetilide (Tikosyn) 250 Mcg Cap 250 MCG PO BID for Regulate Heart Beat, #60 CAP 0 Refills For Creatinine Clearance 40-60 mL/min Duloxetine DR (Duloxetine DR) 60 Mg Capdr 60 MG PO DAILY, #30 CAP 0 Refills Eletriptan (Relpax) 40 Mg Tab 40 MG PO ONCE PRN for MIGRAINE HEADACHE, #6 TAB 0 Refills Metoprolol Succinate ER 24 HR (Metoprolol Succinate ER 24 HR) 100 Mg Tab 100 MG PO DAILY, #30 TAB 0 Refills Omeprazole Magnesium (Prilosec) 20 Mg Tab MG PO BID Pregabalin (Lyrica) 150 Mg Cap 150 MG PO DAILY, #60 CAP 0 Refills Rivaroxaban (Xarelto) 20 Mg Tab 20 MG PO DAILY for Blood Clot Prevention, TAB 0 Refills Rizatriptan (Rizatriptan) 10 Mg Tab 10 MG PRN Tramadol (Tramadol) 50 Mg Tab 50 MG PO Q6H PRN for PAIN, TAB 0 Refills [calcium] () 4000 MG PO DAILY [iron] () 30 MG PO DAILY [multlivitamin] () Discontinued Medications: Baclofen (Baclofen) 10 Mg Tab 10 MG PO DAILY, TAB 0 Refills Werner Moody DO Feb 20, 2017 13:29
--- NOTE | 2017-02-20 15:32 | HHI.IDPN ---
Note Infectious Disease Note Patient notes that she has little pain in the left knee. Says she feels better and want's to go home. Ortho report noted. Afebrile. Denies chills. PAST MEDICAL HISTORY Atrial fibrillation. Depression. Anxiety. Dysphagia. Migraines. Osteoarthritis. total left knee replacement in 2008. Gastric bypass. ALLERGIES ACETAMINOPHEN, ENOXAPARIN, OXYCODONE. MEDICATIONS 1. Vancomycin. 2. Cefepime. OBJECTIVE: Vital Signs Date Time Temp Pulse Resp B/P (MAP) Pulse Ox O2 Delivery O2 Flow Rate FiO2 02/20/17 12:00 97.2 102 12 136/71 (92) 94 02/20/17 08:00 96.9 95 14 125/94 (104) 96 107/68 (81) 119/93 (102) 02/20/17 04:00 97.3 98 20 107/71 (83) 98 02/20/17 00:00 98.0 86 20 101/61 (74) 97 02/19/17 20:00 97.8 93 20 117/83 (94) 98 129/94 (106) 116/71 (86) 02/19/17 16:00 97.1 84 16 121/85 (97) 100 Laboratory Tests Test 02/18/17 18:50 02/19/17 07:55 Erythrocyte Sedimentation Rate 54 mm/hr 49 mm/hr White Blood Count 5.5 TH/MM3 Red Blood Count 3.76 MIL/MM3 Hemoglobin 11.0 GM/DL Hematocrit 32.9 % Mean Corpuscular Volume 87.5 FL Mean Corpuscular Hemoglobin 29.3 PG Mean Corpuscular Hemoglobin Concent 33.5 % Red Cell Distribution Width 13.5 % Platelet Count 238 TH/MM3 Mean Platelet Volume 8.2 FL Laboratory Tests Test 02/18/17 18:50 02/19/17 07:55 C-Reactive Protein 3.40 MG/DL 2.58 MG/DL Blood Urea Nitrogen 8 MG/DL Creatinine 0.61 MG/DL Random Glucose 105 MG/DL Calcium Level 8.4 MG/DL Magnesium Level 1.8 MG/DL Sodium Level 138 MEQ/L Potassium Level 3.7 MEQ/L Chloride Level 104 MEQ/L Carbon Dioxide Level 29.7 MEQ/L Anion Gap 4 MEQ/L Estimat Glomerular Filtration Rate 98 ML/MIN Microbiology Date/Time Source Procedure Growth Status 02/18/17 09:45 Wound Knee Gram Stain - Final Resulted 02/18/17 09:45 Wound Culture - Preliminary Mold Species Resulted PHYSICAL EXAMINATION GENERAL: No acute distress. Awake and alert and oriented. HEENT: Head is atraumatic. Extraocular movements grossly intact, pupils reactive to light. No icterus. Oropharynx moist mucosa. NECK: Supple. No adenopathy. LUNGS: Clear breath sounds. HEART: Irregular rate and rhythm. No murmurs, rubs or gallops. ABDOMEN: Bowel sounds present, soft, nontender. EXTREMITIES: The left knee has an incision from prior left knee replacement surgery. left kneecap erythema has improved. No drainage. The posterior/lateral aspect of the thigh and knee has ecchymosis. The left tibia, approximately mid tibia down to the ankle confluent erythema is slightly decreased. Still warm. No clubbing, cyanosis or edema. SKIN: No diffuse rash. NEURO: Nonfocal. IMPRESSION. L knee trauma/ ? infection. Seen by ortho. Cellulitis L. tibia. Improving. RECOMMENDATIONS Change antibiotics to ceftriaxone IV and treat outpatient until 03/02/17. IV mid line has been ordered. Orders written for outpatient treatment. Patient to follow up with her primary physician in [place], [place]. Shiv Roy MD Feb 20, 2017 15:32
[2017-02-21] MEDS ORDERED: PHARMACY ORDERED LAB ONE (05:45)
== END 2017-02-20 19:45 | disposition home health service (06) | DRG 603 ==
LOC: PHEDDLT 22:13 → PH3B 22:14 → OBSVTOIN 02-18 09:03
PROVIDERS: ADMIT Hospitalist; ATTEND Hospitalist
PROC: 05H533Z Insertion of Infusion Device into Right Subclavian Vein, Percutaneous Approach (ICD-10-PCS; principal; 2017-02-20)
PROC: B546ZZA Ultrasonography of Right Subclavian Vein, Guidance (ICD-10-PCS; 2017-02-20)
DX: L03.116 Cellulitis of left lower limb (principal); I48.91 Unspecified atrial fibrillation; Z79.02 Long term (current) use of antithrombotics/antiplatelets; R55 Syncope and collapse; E16.2 Hypoglycemia, unspecified; M19.90 Unspecified osteoarthritis, unspecified site; Z96.652 Presence of left artificial knee joint; Z98.84 Bariatric surgery status
CPT/HCPCS: 36569; 70450; 73564; 76937; 80048; 82948; 83735; 85025; 85027; 85610; 85652; 85730; 86140; 87070; 87205; 93880; 93970; 99285; J0692; J1956; J2270; J3370; J7040